=== PATIENT | male | born 1975 | race Caucasian/White ===

== ENCOUNTER 2018-06-17 21:29 | Emergency (ER) | payer MEDICAID ==
[~2018-06-17] VITALS: Ht 165.1 cm; Wt 64.0 kg
[2018-06-17 21:34] VITALS: Ht 165.1 cm; Wt 64.0 kg
[2018-06-17 23:19] VITALS: BP 131/81
== END 2018-06-17 23:19 | disposition home or self-care (01) ==
LOC: ED 21:29
DX: L50.0 Allergic urticaria (principal)
CPT/HCPCS: J1200; J2930; J3490